=== PATIENT | male | born 1965 | race Caucasian/White ===

== ENCOUNTER → 2020-03-29 10:17 | Outpatient (CLI) | payer OTHER, SELFPAY ==
--- NOTE | 2020-03-29 11:52 | PM.TREADMILL ---
Cardiac Stress Test Report Referral & Results Date Patient Seen: 03/29/20 Time Patient Seen: 11:52 Requesting provider: Maximiliano Weiner Indication: palpitations Rest ECG: sinus rhythm Procedure Note: Standard Luis Eduardo protocol, 5:45, 6.7 mets Markedly reduced exercise capacity, EDUIN +33% Accelerated blood pressure and heart rate response to exercise, hypertensive at baseline. Test stopped due to hypertension. No chest pain or anginal symptoms No ST changes or ectopy Impression: Normal exercise stress test with accelerated blood pressure response. Please note: Actual ECG tracings can be found in the PACS system.
== END ==
PROVIDERS: Family Provider Student in an Organized Health Care Education/Training Program; PCP Student in an Organized Health Care Education/Training Program; Referring Provider Student in an Organized Health Care Education/Training Program; Visit Provider Student in an Organized Health Care Education/Training Program
DX: R00.2 Palpitations (principal); R07.89 Other chest pain
CPT/HCPCS: 93017